=== PATIENT | male | born 1980 | race African-American/Black ===

== ENCOUNTER 2021-10-11 00:04 | Emergency (ER) | payer OTHER ==
[2021-10-11] VITALS (8 sets, daily range): BP systolic 108–128; BP diastolic 58–74
[~2021-10-11] VITALS: Ht 193 cm; Wt 105.0 kg
[2021-10-11] MEDS ORDERED: CORDARONE/200 MG/TAB PO (00:22)
[2021-10-11] MEDS ORDERED: TRANDATE300 MG PO (00:22)
[2021-10-11] MEDS ORDERED: HYDRALAZINE10 M2 PO (00:23)
[2021-10-11] MEDS ORDERED: NORVASC5 M1 PO (00:23)
[2021-10-11] MEDS ORDERED: WARFARIN SODIU2.5 MG PO (00:24)
[2021-10-11] MEDS ORDERED: VOLTAREN75 MG PO (01:15)
== END 2021-10-11 01:51 | disposition home or self-care (01) | DRG 605 ==
LOC: ED 00:04
DX: S50.02XA Contusion of left elbow, initial encounter (principal); I10 Essential (primary) hypertension; W01.0XXA Fall on same level from slipping, tripping and stumbling without subsequent striking against object, initial encounter; Y92.89 Other specified places as the place of occurrence of the external cause; Y99.0 Civilian activity done for income or pay